=== PATIENT | female | born 1935 | race Caucasian/White ===

== ENCOUNTER → 2019-05-18 | Outpatient (CLI) | payer MEDICARE, BC ==
[~2019-05-18] MED LIST: GADOBENATE DIMEGLUMINE 1 ML IV ONE
[2019-05-18 11:07] LABS: CREATININE, SERUM 0.93 mg/dL (0.57-1.11)
--- NOTE | 2019-05-18 17:16 | Diagnostic Imaging Report ---
History: Fall, pain between the eyes Comparison studies: Brain MRI on 07/13/2007 Technique: Pre-contrast: Sagittal T2; axial T1-IR, SWI, DWI, T2 FLAIR Post-contrast: Axial, coronal and sagittal T1. Intravenous contrast: 13 cc of MultiHance. Findings: Scalp: No abnormal signal. No masses. Bone marrow: Normal in signal intensity. Extra-axial: No masses, fluid collections or hemorrhage. Brain sulci: Appropriate for age. Ventricles: Normal in size . No hydrocephalus. Parenchyma: Confluent T2 FLAIR hyperintense foci in the deep frontoparietal white matter, along the margins of the lateral ventricles, and in the arabella nonspecific small vessel ischemic changes. Multiple punctate chronic lacunar insults in the basal ganglia, body of the right caudate and parietal white matter are nonspecific. A 1 cm nonenhancing T1 hypointense focus in the right postcentral gyrus at the vertex is not associated with surrounding edema or mass effect (series 12, image 17, series 13, image 17). No masses, hemorrhage, acute or chronic vascular insults. No enhancing abnormalities. Suprasellar region: No abnormalities. Craniocervical junction: No abnormalities. Patent foramen magnum. No Chiari one malformation.. Vessels: Normal flow-voids in the arteries and sinuses. IMPRESSION: No acute abnormalities. Persistent findings: 1. Moderate generalized volume loss and moderate supratentorial white matter small vessel ischemic changes have progressively increased since 2006. 2. Scattered chronic lacunar insult. 3. A 1 cm nonspecific nonenhancing focus in the right postcentral gyrus, without mass effect, has slightly increased from 6 to 10 mm since 2006. 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 Signed by: Dr. León Turner M.D. on 05/18/2019 5:12 PM
== END ==
LOC: MRI 10:02
PROVIDERS: ATTEND Family Medicine
DX: R55 Syncope and collapse (principal)
CPT/HCPCS: 36415; 70553; 82565; 84520